=== PATIENT | female | born 1985 | race African-American/Black ===

== ENCOUNTER 2019-05-06 07:24 | Inpatient (IN) | payer MEDICAID, OTHER ==
[~2019-05-06] VITALS: Ht 165.1 cm; Wt 71.7 kg
[~2019-05-06 07:24] MED LIST: ALBU18HF INHALATION; BECL10.62 IH; CHOL100062 PO; CLON-412 PO; DOCU100T PO; ESCI5TAB PO; FER325 PO; GABA300C16 PO; METO10TA3 PO; OMEP40CA6 PO; ONDA4TAB8 PO; PANT20TA2 PO; PRED10TA PO; PROM25TA14 PO; PROP10TA6 PO; RIVA10TA PO; SUCR1TAB56 PO; ZOLP10TA5 PO; ZOLP12.54 PO
[2019-05-06 07:30] VITALS: Ht 165.1 cm; Wt 71.7 kg
[2019-05-06] MEDS ORDERED: ONDANSETRON 4 MG INJ IV STA ×3 (07:59→11:27)
[2019-05-06] MEDS ORDERED: KETAMINE HCL (50 MG/ML) 1ml syringe IV STA (07:59)
[2019-05-06] MEDS ORDERED: SOD CHLORIDE 0.9% 1,000 ML IV STA (07:59)
[2019-05-06] MEDS ORDERED: HYDROmorphONE 2 MG/ML SYG IM STA (08:46)
[2019-05-06] MEDS ORDERED: HYDROmorphONE 2 MG/ML SYG IV STA ×2 (10:04→11:27)
[2019-05-06] MEDS ORDERED: ACETAMINOPHEN 325 MG TAB PO PRN (13:00)
[2019-05-06] MEDS ORDERED: ONDANSETRON 4 MG INJ IV PRN ×2 (13:00→14:30)
[2019-05-06] MEDS ORDERED: KETOROLAC 15 MG INJ IV PRN (14:30)
[2019-05-06] MEDS ORDERED: ONDANSETRON 4 MG TAB PO PRN (14:30)
[2019-05-06] MEDS ORDERED: clonAZEPAM 0.5 MG TAB PO PRN (14:30)
[2019-05-06] MEDS ORDERED: METOCLOPRAMIDE 10 MG TAB PO PRN (14:30)
[2019-05-06] MEDS ORDERED: ALBUTEROL/IPRATROPIUM (NEB) 3 ML AMP HHN PRN (14:30)
[2019-05-06] MEDS ORDERED: ZOLPIDEM 5 MG TAB PO PRN (14:30)
[2019-05-06] MEDS ORDERED: DOCUSATE SODIUM 100 MG CAP PO PRN (14:30)
[2019-05-06] MEDS ORDERED: PROMETHAZINE 25 MG TAB PO PRN (14:30)
[2019-05-06] MEDS ORDERED: NACL 0.9% 3 ML SYG IV SCH (14:30)
[2019-05-06] MEDS ORDERED: NS + KCL 20 MEQ 1,000 ML IV SCH (15:00)
[2019-05-06 15:56] VITALS: BP 106/57; PULSE 75; RESP 17
[2019-05-06] MEDS ORDERED: SUCRALFATE 1 GM TAB PO SCH (17:30)
[2019-05-07] MEDS ORDERED: PANTOPRAZOLE SODIUM 20 MG TABEC PO SCH (09:00)
[2019-05-07] MEDS ORDERED: FERROUS SULFATE (EC) 325 MG TAB PO SCH (09:00)
[2019-05-07] MEDS ORDERED: predniSONE 10 MG TAB PO SCH (09:00)
[2019-05-07] MEDS ORDERED: CHOLECALCIFEROL 1,000 UNIT TAB PO SCH (09:00)
[2019-05-07] MEDS ORDERED: DOCUSATE SODIUM 100 MG CAP PO SCH (09:00)
== END 2019-05-06 18:00 | disposition left against medical advice (07) | DRG 379 ==
LOC: E/R 07:24 → 2NE 12:33
PROVIDERS: ADMIT Internal Medicine; ATTEND Internal Medicine
DX: K62.5 Hemorrhage of anus and rectum (principal); Z76.5 Malingerer [conscious simulation]; M32.9 Systemic lupus erythematosus, unspecified; D50.9 Iron deficiency anemia, unspecified; Z98.84 Bariatric surgery status; M35.00 Sjogren syndrome, unspecified; R10.9 Unspecified abdominal pain
CPT/HCPCS: 36415; 74176; 80053; 81001; 81003; 81025; 83690; 85025; 96374; 96375; 96376; J1170; J2405; J3480; J7030